=== PATIENT | female | born 1965 | race Caucasian/White ===

== ENCOUNTER 2023-04-08 16:40 | Emergency (ER) | payer OTHER, BC ==
--- NOTE | 2023-04-08 19:07 | RAD REPORT ---
EXAM DESCRIPTION: RAD - Hand Right 3 View - 04/08/2023 7:02 pm CLINICAL HISTORY: PAIN COMPARISON: No comparisons FINDINGS: No acute fracture or dislocation.
--- NOTE | 2023-04-08 19:08 | RAD REPORT ---
EXAM DESCRIPTION: RAD - Elbow Right 3 View - 04/08/2023 7:02 pm CLINICAL HISTORY: PAIN COMPARISON: No comparisons FINDINGS: No acute fracture or dislocation.
--- NOTE | 2023-04-08 19:10 | RAD REPORT ---
EXAM DESCRIPTION: RAD - Knee Left 3 View - 04/08/2023 7:02 pm CLINICAL HISTORY: PAIN COMPARISON: No comparisons FINDINGS: No acute fracture or dislocation seen. No significant joint effusion.
--- NOTE | 2023-04-08 19:10 | RAD REPORT ---
EXAM DESCRIPTION: RAD - Wrist Right 3 View - 04/08/2023 7:02 pm CLINICAL HISTORY: PAIN Pain COMPARISON: No comparisons FINDINGS: Mild soft tissue swelling. No acute fracture or dislocation.
--- NOTE | 2023-04-08 19:11 | RAD REPORT ---
EXAM DESCRIPTION: RAD - Knee Right 3 View - 04/08/2023 7:02 pm CLINICAL HISTORY: PAIN COMPARISON: <Comparisons> FINDINGS: No fracture or dislocation is seen. No joint effusion evident.
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
[2023-04-08] MEDS ORDERED: HYDROCODONE/APAP 5/325 MG TAB ONE (19:51)
[2023-04-08 20:02] VITALS: TEMP 97.3
[2023-04-08 20:04] VITALS: BP 150/89; O2SAT 98
== END 2023-04-08 19:52 | disposition home or self-care (01) ==
LOC: ER 16:40
DX: S40.021A Contusion of right upper arm, initial encounter (principal); M25.562 Pain in left knee; M25.561 Pain in right knee; V49.49XA Driver injured in collision with other motor vehicles in traffic accident, initial encounter
CPT/HCPCS: 99283